=== PATIENT | female | born 1970 | race African-American/Black ===

== ENCOUNTER 2020-07-31 04:15 | Emergency (ER) | payer SELFPAY ==
[~2020-07-31] VITALS: Ht 149.9 cm; Wt 80.7 kg
[2020-07-31 04:20] VITALS: BP 162/80
[2020-07-31] MEDS ORDERED: ALBUTEROL HFA MDI 90 MCG/ACTUATION 8 GM INH ONE (04:30)
[2020-07-31] MEDS ORDERED: DEXAMETHASONE 4 MG/ML VIAL IM ONE (04:30)
[2020-07-31] MEDS ORDERED: PRED20TA5 PO (05:43)
[2020-07-31] MEDS ORDERED: ALBU0.0912 IH (05:43)
[2020-07-31 06:15] VITALS: BP 162/80
== END 2020-07-31 06:15 | disposition home or self-care (01) ==
LOC: MED 04:15
DX: J20.9 Acute bronchitis, unspecified (principal); Z88.8 Allergy status to other drugs, medicaments and biological substances
CPT/HCPCS: 71045; 96372; 99283; J1100